=== PATIENT | female | born 1950 | race Caucasian/White ===

== ENCOUNTER → 2019-08-03 | Outpatient (CLI) | payer OTHER ==
--- NOTE | 2019-08-03 11:09 | US ---
EXAMINATION TYPE: US pelvis complete transvag DATE OF EXAM: 08/03/2019 COMPARISON: NONE CLINICAL HISTORY: R1031 RLQ PAIN. RLQ pain, tubal ligation TECHNIQUE: Transvaginal (TV) and Transabdominal (TA) . Transabdominal sonographic images of the pel vis were acquired. Transvaginal sonographic images were medically necessary to better assess the fol lowing anatomy: ovaries Date of LMP: unknown EXAM MEASUREMENTS: Uterus: 8.9 x 2.9 x 4.1 cm Endometrial Stripe: 1.2 cm Right Ovary: unable to visualize Left Ovary: unable to visualize 1. Uterus: Anteverted heterogeneous 2. Endometrium: thickened with cystic area = 0.3cm 3. Right Ovary: Obscured by overlying bowel gas 4. Left Ovary: Obscured by overlying bowel gas 5. Bilateral Adnexa: appears wnl 6. Posterior cul-de-sac: wnl IMPRESSION: Abnormal endometrial thickness of 1.2 cm and a postmenopausal female. Direct visualizatio n with sampling is recommended. Ovaries are nonvisualized.
--- NOTE | 2019-08-03 11:38 | US ---
EXAMINATION TYPE: US abdomen complete DATE OF EXAM: 08/03/2019 COMPARISON: NONE CLINICAL HISTORY: R1031 RLQ PAIN. RLQ pain EXAM MEASUREMENTS: Liver Length: 15.3 cm Gallbladder Wall: 0.2 cm CBD: 0.5 cm Spleen: 11.5 cm Right Kidney: 10.8 x 4.5 x 4.8 cm Left Kidney: 11.3 x 5.6 x 4.7 cm Pancreas: Obscured by bowel gas Liver: complex cystic area left lobe 2.9 x 2.9 x 3.4cm Gallbladder: polyps noted, subcentimeter. There appears to be two present. Evidence for sonographic Elizabeth's sign: no CBD: appears wnl Spleen: wnl Right Kidney: no evidence of hydronephrosis Left Kidney: cystic area lower pole = 3.6 x 3.1 x 3.0cm Upper IVC: wnl Abd Aorta: calcifications noted The liver is homogenous other than the above-mentioned cystic lesion. The intrahepatic portion of th e IVC and proximal abdominal aorta are within normal limits. There is no evidence of cholelithiasis. Common bile duct is unremarkable. The pancreas is obscured. The spleen is unremarkable. Kidneys are symmetric and free of hydronephrosis. No suspicious renal lesions are seen. IMPRESSION: 1. Multiple subcentimeter gallbladder polyps, annual surveillance is recommended for subcentimeter po lyps with yearly ultrasound. 2. Benign-appearing cyst of the left lower pole the kidney measuring 3.6 cm and complex benign-appear ing cyst of the liver measuring 3.4 cm.
== END | disposition home or self-care (01) ==
LOC: RADUSWWP 08:30
PROVIDERS: ATTEND Family Medicine
DX: K82.4 Cholesterolosis of gallbladder (principal); N28.1 Cyst of kidney, acquired; K76.89 Other specified diseases of liver; R93.89 Abnormal findings on diagnostic imaging of other specified body structures; Z78.0 Asymptomatic menopausal state
CPT/HCPCS: 76700; 76830; 76856

== ENCOUNTER → 2021-08-19 | Outpatient (CLI) | payer MEDICARE ==
--- NOTE | 2021-08-25 11:22 | MM ---
Reason for exam: screening (asymptomatic). Last mammogram was performed 4 years ago. History: Patient is postmenopausal. Family history of breast cancer in paternal grandmother. Took hormonal contraceptives for 6 months beginning at age 20. Physical Findings: A clinical breast exam by your physician is recommended on an annual basis and results should be correlated with mammographic findings. MG 3D Screening Mammo W/Cad Bilateral CC and MLO view(s) were taken. Prior study comparison: September 02, 2017, bilateral MG 3d screening mammo w/cad. July 29, 2016, bilateral MG 3d screening mammo w/cad. The breast tissue is heterogeneously dense. This may lower the sensitivity of mammography. New grouped course calcifications. Further magnification views recommended. ASSESSMENT: Incomplete: need additional imaging evaluation, BI-RAD 0 RECOMMENDATION: Special view mammogram of both breasts. (magnification) [facility] will attempt to contact patient to return for supplemental views.
== END | disposition home or self-care (01) ==
LOC: RADMAMWWP 12:45
PROVIDERS: ATTEND Family Medicine
DX: Z12.31 Encounter for screening mammogram for malignant neoplasm of breast (principal); Z80.3 Family history of malignant neoplasm of breast; Z78.0 Asymptomatic menopausal state
CPT/HCPCS: 77063; 77067

== ENCOUNTER → 2021-08-26 | Outpatient (CLI) | payer MEDICARE ==
--- NOTE | 2021-08-27 07:51 | MM ---
Reason for exam: additional evaluation requested from abnormal screening. Last mammogram was performed less than 1 month ago. History: Patient is postmenopausal. Family history of breast cancer in paternal grandmother. Took hormonal contraceptives for 6 months beginning at age 20. Physical Findings: Nurse did not find any significant physical abnormalities on exam. MG 3D Work Up W/Cad [facility] Bilateral spot compression CC, spot compression LM, and LM view(s) were taken. Prior study comparison: August 19, 2021, bilateral MG 3d screening mammo w/cad. September 02, 2017, bilateral MG 3d screening mammo w/cad. The breast tissue is heterogeneously dense. This may lower the sensitivity of mammography. Finding: There are new increasing heterogeneous, grouped/clustered calcifications in the upper outer quadrant, middle position of both breasts. New finding since August 19, 2021. These results were verbally communicated with the patient and result sheet given to the patient on 08/26/21. ASSESSMENT: Suspicious, BI-RAD 4 RECOMMENDATION: Stereotactic core biopsy of both breasts. Called Dr. Snyder's office with mammographic findings and has scheduled an appointment for the patient for 09/24/21 at 11:[address] Levin. Biopsy scheduled for 09/18/21 at 8:00. PRELIMINARY REPORT CALLED AND FAXED TO DR. LVEIN ON 08/26/21.
== END | disposition home or self-care (01) ==
LOC: RADMAMWWP 13:12
PROVIDERS: ATTEND Family Medicine
DX: R92.8 Other abnormal and inconclusive findings on diagnostic imaging of breast (principal)
CPT/HCPCS: 77066; G0279; 77062

== ENCOUNTER → 2021-09-18 | Day surgery (SDC) | payer MEDICARE ==
[2021-09-18 07:25] VITALS: PULSE 55; TEMP 98.1
[2021-09-18 10:31] VITALS: BP 136/84; RESP 17
--- NOTE | 2021-09-18 19:22 | MM ---
EXAMINATION TYPE: MG stereo VAD BX RT, MG stereo VAD BX LT DATE OF EXAM: 09/18/2021 COMPARISON: 08/19/2021 and 08/26/2021 CLINICAL HISTORY: 71-year-old female referred for stereotactic core needle biopsy of bilateral breast calcifications. R 92.8. TECHNIQUE: Stereotactic guided core biopsy of the bilateral breast. FINDINGS: The procedure of stereotactic guided core biopsy was explained to the patient. Benefits, alternatives, and risks were discussed. An informed consent was then obtained. RIGHT: UOQ: The shortness pathway for biopsy was chosen. Shortness pathway was a lateral approach. I performed the localization followed by the remainder of the procedure. A vacuum assisted biopsy gun was used to obtain 6 core samples. Targeted calcifications are identified in specimen mammogram. Post biopsy mammogram shows 1.0 to 1.5 cm of lateral clip migration. LEFT: UOQ: The shortness pathway for biopsy was chosen. Shortness pathway was a superior approach. I performed the localization followed by the remainder of the procedure. A vacuum assisted biopsy gun was used to obtain 8 core samples. Targeted calcifications are identified in the specimen mammogram. Post biopsy mammogram shows the clip to appear in satisfactory position relative to the targeted area of concern on the preprocedure images. Some residual microcalcifications remaining. The patient tolerated the procedure well without any immediate complication. The patient was kept in the radiology department for short stay after the procedure and then discharged home in stable condition. IMPRESSION: SUCCESSFUL, UNCOMPLICATED STEREOTACTIC GUIDED CORE BIOPSY OF BILATERAL MICROCALCIFICATIONS IN THE UPPER OUTER QUADRANTS. Note 1.0 to 1.5 cm of lateral clip migration on the right. FULL PATHOLOGY RESULTS TO FOLLOW. Pathology Results: Benign A. RIGHT BREAST, STEREOTACTIC CORE BIOPSY: Fibroadenomatoid hyperplasia with calcifications and background fibrocystic changes. B. LEFT BREAST, STEREOTACTIC CORE BIOPSY: Fibroadenomatoid hyperplasia with calcifications and background fibrocystic changes. Recommendation Follow up mammogram of both breasts in 6 months. KRISSY
== END ==
LOC: RADMAMWWP 07:04
PROVIDERS: ATTEND Student in an Organized Health Care Education/Training Program
DX: R92.8 Other abnormal and inconclusive findings on diagnostic imaging of breast (principal); R92.1 Mammographic calcification found on diagnostic imaging of breast; N62 Hypertrophy of breast; Z88.8 Allergy status to other drugs, medicaments and biological substances
CPT/HCPCS: 88305; 19081; 19082; A4648; J2001

== ENCOUNTER → 2022-01-30 | Outpatient (CLI) | payer MEDICARE ==
--- NOTE | 2022-01-30 11:28 | US ---
EXAMINATION TYPE: US thyroid st tissue head/neck DATE OF EXAM: 01/30/2022 COMPARISON: NONE CLINICAL HISTORY: HYPERCALCEMIA E83.52. GLAND SIZE: Right Lobe: 4.1 x 1.4 x 1.8 cm Overall Parenchyma: homogenous Left Lobe: 4.2 x 1.4 x 1.3 cm Overall Parenchyma: homogeneous Isthmus Thickness: 0.3 cm NODULES RIGHT: # of nodules measured on right: 0 LEFT: # of nodules measured on left: 1 1. 1.6 X 1.2 x 1.4 cm, lower mid, solid or almost completely solid, hypoechoic nodule, which is wid er than tall, with ill-defined margins, with echogenic foci. Prior size: no previous ISTHMUS: # of nodules measured in the isthmus: 0 Bilateral neck scanned, no evidence of lymphadenopathy. IMPRESSION: Solid nodule left thyroid lobe. Consider tissue diagnosis. 2017 ACR TI-RADS LEVEL: *Highest TI-RADS level nodule reported
== END | disposition home or self-care (01) ==
LOC: RADUSWWP 10:35
PROVIDERS: ATTEND Family Medicine
DX: E04.1 Nontoxic single thyroid nodule (principal); E83.52 Hypercalcemia
CPT/HCPCS: 76536

== ENCOUNTER 2022-03-18 08:26 | Day surgery (SDC) | payer MEDICARE ==
[2022-03-18 09:05] VITALS: RESP 18
[2022-03-18] MEDS ORDERED: ALPRAZolam 0.25 MG TAB PO STA (09:10)
[2022-03-18 09:22] LABS: Glucose,Whole Blood 121 mg/dL (70-110)
[2022-03-18 10:24] VITALS: PULSE 53
[2022-03-18 10:28] VITALS: BP 149/78
--- NOTE | 2022-03-18 10:54 | US ---
ULTRASOUND GUIDED FNA THYROID BIOPSY: CLINICAL HISTORY: Left thyroid nodule FINDINGS: The procedure was explained to the patient. The risks, complications, benefits and alternatives were discussed and any questions were answered. Informed consent was obtained. Patient was placed supin e on the ultrasound table and prepped and draped in the usual sterile fashion. Utilizing a 25 gauge needle, five passes were made into the requested left thyroid nodule. Patient was stable throughout the procedure. Pathology is pending. All elements of maximal barrier technique were utilized. IMPRESSION: 1. Successful ultrasound guided FNA thyroid biopsy.
== END 2022-03-18 11:00 | disposition home or self-care (01) ==
LOC: RADPROMAIN 08:26
PROVIDERS: ATTEND Family Medicine
DX: D34 Benign neoplasm of thyroid gland (principal); Z88.8 Allergy status to other drugs, medicaments and biological substances; Z79.82 Long term (current) use of aspirin; Z79.899 Other long term (current) drug therapy; Z79.1 Long term (current) use of non-steroidal anti-inflammatories (NSAID)
CPT/HCPCS: 10005; 88173; 88305

== ENCOUNTER → 2022-03-20 | Outpatient (CLI) | payer MEDICARE ==
--- NOTE | 2022-03-20 13:21 | MM ---
Reason for Exam: Follow-up at short interval from prior study. Last screening mammogram was performed 7 month(s) ago. Patient History: Menarche at age 13. First Full-Term at age 21. Postmenopausal. Hormonal Contraceptives for 6 months starting at age 20. 09/18/2021, Benign Core Biopsy on the left side. 09/18/2021, Benign Core Biopsy on the right side. Paternal grandmother had breast cancer. Risk Values: Tamara 5 year model risk: 2.1%. NCI Lifetime model risk: 6.0%. Tissue Density: The breast tissue is heterogeneously dense. This may lower the sensitivity of mammography. Findings: Analyzed By CAD. Stable appearing bilateral benign-appearing calcifications some of which have been sampled. No evidence for mass or distortion. Overall Assessment: Benign, BI-RAD 2 Management: Screening Mammogram of both breasts in 6 months. A clinical breast exam by your physician is recommended on an annual basis and results should be correlated with mammographic findings. This exam should not preclude additional follow-up of suspicious palpable abnormalities. Results were given to the patient verbally at the time of exam. Electronically signed and approved by: Isidro Driver M.D. Radiologis
== END | disposition home or self-care (01) ==
LOC: RADMAMWWP 12:48
PROVIDERS: ATTEND Family Medicine
DX: R92.8 Other abnormal and inconclusive findings on diagnostic imaging of breast (principal); Z78.0 Asymptomatic menopausal state; Z80.3 Family history of malignant neoplasm of breast
CPT/HCPCS: 77066; G0279; 77062

== ENCOUNTER → 2023-02-04 | Outpatient (CLI) | payer MEDICARE ==
--- NOTE | 2023-02-04 15:43 | US ---
EXAMINATION TYPE: US thyroid st tissue head/neck DATE OF EXAM: 02/04/2023 COMPARISON: 01/30/2022 CLINICAL INDICATION: Female, 73 years old with history of E041, E8352 HYPERCALCEMIA, NONTOXIC SINGLE THYROID NODULE; thyroid nodule GLAND SIZE: Right Lobe: 4.1x1.3x1.5 cm Overall Parenchyma: homogenous Left Lobe: 3.8x1.4x1.1 cm Overall Parenchyma: homogeneous Isthmus Thickness: 0.3 cm NODULES RIGHT: # of nodules measured on right: 1. A 1.0 x 0.7 x 0.5 cm oval hypoechoic TR4 solid nodule at the anterior midpole. Not well seen previously. Reassess at follow-up. LEFT: # of nodules measured on left: 1 1. 1.9 X 1.4 x 1.5 cm, lower mid, solid or almost completely solid, hypoechoic TR 4 nodule, which i s taller than wide, with smooth margins, without echogenic foci. Prior size: 1.6 x 1.2 x 1.4 cm ISTHMUS: # of nodules measured in the isthmus: 0 Bilateral neck scanned, no evidence of lymphadenopathy. IMPRESSION: 1. A 1.0 cm TR4 nodule in the right lobe previously not well seen. Reassessed at follow-up. 2. The TR4 nodule in the left lobe is slightly larger at 1.9 x 1.5 cm (versus 1.6 x 1.4 cm, previousl y).
--- NOTE | 2023-02-05 09:07 | MM ---
Reason for Exam: Screening (asymptomatic). Last screening mammogram was performed 11 month(s) ago. Patient History: Menarche at age 13. First Full-Term at age 21. Postmenopausal. Hormonal Contraceptives for 6 months starting at age 20. 09/18/2021, Benign Core Biopsy on the left side. 09/18/2021, Benign Core Biopsy on the right side. Paternal grandmother had breast cancer. Risk Values: Tamara 5 year model risk: 2.1%. NCI Lifetime model risk: 5.7%. Prior Study Comparison: 08/19/2021 Bilateral Screening Mammogram, [facility]. 08/26/2021 Bilateral Diagnostic Mammogram, [facility]. 03/20/2022 Bilateral MG 3D diag mammo w/cad [facility], [facility]. Tissue Density: The breast tissue is heterogeneously dense. This may lower the sensitivity of mammography. Findings: Analyzed By CAD. There is no suspicious group of microcalcifications or new suspicious mass in either breast. Previous mammotome biopsy of the left breast. Benign-appearing stable calcifications within both breasts. Overall Assessment: Benign, BI-RAD 2 Management: Screening Mammogram of both breasts in 1 year. A clinical breast exam by your physician is recommended on an annual basis and results should be correlated with mammographic findings. Electronically signed and approved by: Dontrell Govea D.O.
== END | disposition home or self-care (01) ==
LOC: RADUSWWP 09:59
PROVIDERS: ATTEND Family Medicine
DX: Z12.31 Encounter for screening mammogram for malignant neoplasm of breast (principal); E04.1 Nontoxic single thyroid nodule; Z78.0 Asymptomatic menopausal state; Z80.3 Family history of malignant neoplasm of breast
CPT/HCPCS: 76536; 77063; 77067

== ENCOUNTER 2023-03-25 08:23 | Day surgery (SDC) | payer MEDICARE ==
[2023-03-25] MEDS ORDERED: ALPRAZolam 0.25 MG TAB PO STA (09:23)
--- NOTE | 2023-03-25 10:36 | US ---
EXAMINATION TYPE: US FNA first lesion DATE OF EXAM: 03/25/2023 10:22 AM CLINICAL INDICATION:Female, 73 years old with history of E04.2 multinodular goiter; , thyroid nodule. COMPARISON: 02/04/2023 ATTENDING: Dr. Rey Andersen PROCEDURE: Informed consent was obtained. The risks and benefits of the procedure were discussed with the patien t. The site was marked. Timeout procedure was performed Ultrasound imaging of the thyroid demonstrates left thyroid nodule The patient was prepped, draped in the usual sterile fashion, and locally anesthetized with 1% lidoca ine. Five fine needle aspiration were then performed with a 25 gauge needle. Samples were sent to [facility] pathology department for further analysis. Patient tolerated the procedure without incident and wa s sent home in stable condition. IMPRESSION: Successful ultrasound guided fine needle aspiration of left thyroid nodule.
[2023-03-25 11:12] VITALS: RESP 16; TEMP 97.9
[2023-03-25 11:14] VITALS: BP 139/78; PULSE 48
== END 2023-03-25 11:10 | disposition home or self-care (01) ==
LOC: RADPROMAIN 08:23
PROVIDERS: ATTEND Family Medicine
DX: E04.1 Nontoxic single thyroid nodule (principal)
CPT/HCPCS: 10005; 88173; 88305

== ENCOUNTER → 2024-03-15 | Outpatient (CLI) | payer MEDICARE ==
--- NOTE | 2024-03-15 22:06 | US ---
EXAMINATION TYPE: US thyroid st tissue head/neck DATE OF EXAM: 03/15/2024 COMPARISON: Thyroid ultrasound 01/30/2022, 02/04/2023, ultrasound FNA 03/16/2022, 03/25/2023 CLINICAL INDICATION: Female, 74 years old with history of E04.1 THYROID; follow up thyroid nodules. GLAND SIZE: Right Lobe: 3.9 x 1.8 x 1.0 cm Overall Parenchyma: homogeneous Left Lobe: 3.9 x 1.6 x 1.1 cm Overall Parenchyma: homogeneous Isthmus Thickness: 0.3 cm NODULES RIGHT: # of nodules measured on right: 0 1. Unable to visualize prior thyroid nodule, multiple images taken LEFT: # of nodules measured on left: 1 1. 1.5 X 1.4 x 1.4 cm, lower mid, solid or almost completely solid, hypoechoic nodule, which is wid er than tall, with smooth margins, with echogenic foci. TR 4. Prior size: 1.9 x 1.4 x 1.5 cm ISTHMUS: # of nodules measured in the isthmus: 0 Bilateral neck scanned, no evidence of lymphadenopathy. IMPRESSION: 1. Stable to marginally decreased size left thyroid lobe 1.5 cm TR 4 nodule. Previous FNA 03/25/2023. 2. Previously seen right thyroid lobe 1 cm nodule is not visualized on today's exam.
== END | disposition home or self-care (01) ==
LOC: RADMAMWWP 12:47
PROVIDERS: ATTEND Family Medicine
DX: Z12.31 Encounter for screening mammogram for malignant neoplasm of breast (principal); E04.1 Nontoxic single thyroid nodule
CPT/HCPCS: 76536; 77063; 77067

== ENCOUNTER 2024-05-02 08:07 | Day surgery (SDC) | payer MEDICARE ==
[2024-05-02] MEDS ORDERED: LACTATED RINGERS 1,000 ML BAG ONE (09:30)
[2024-05-02] MEDS ORDERED: PROPOFOL 10 MG/ML 20 ML VIAL IV ONE (10:03)
[2024-05-02] MEDS ORDERED: LIDOCAINE 1% INJ 10MG/ML (20 ML MDV) ONE (10:03)
--- NOTE | 2024-05-24 13:01 | P.PCN ---
Date of Procedure: 05/02/24 Procedure(s) Performed: This is an addendum to the procedure was performed on 05/02/2024. Procedure performed colonoscopy with snare polypectomy Procedure: The colonoscopy was advanced all the way into the cecum and careful examination was performed as the scope was gradually being withdrawn
== END 2024-05-02 11:32 | disposition home or self-care (01) ==
LOC: ORWHC2ENDO 08:07
PROVIDERS: ATTEND Internal Medicine Gastroenterology
DX: Z12.11 Encounter for screening for malignant neoplasm of colon (principal); K63.5 Polyp of colon; K57.90 Diverticulosis of intestine, part unspecified, without perforation or abscess without bleeding; I10 Essential (primary) hypertension; E78.5 Hyperlipidemia, unspecified; Z79.899 Other long term (current) drug therapy; E11.69 Type 2 diabetes mellitus with other specified complication; Z79.84 Long term (current) use of oral hypoglycemic drugs; Z79.82 Long term (current) use of aspirin; Z88.8 Allergy status to other drugs, medicaments and biological substances; Z98.890 Other specified postprocedural states; Z96.641 Presence of right artificial hip joint
CPT/HCPCS: 45385; 88305

== ENCOUNTER → 2025-02-08 | Outpatient (CLI) | payer MEDICARE ==
--- NOTE | 2025-02-08 10:55 | US ---
EXAMINATION TYPE: US thyroid st tissue head/neck DATE OF EXAM: 02/08/2025 COMPARISON: US 03/15/2024 CLINICAL INDICATION: Female, 75 years old with history of E04.1 NONTOXIC SINGLE THYROID NODULE; Thyro id nodule F/U TECHNIQUE: Grayscale and color Doppler imaging of the thyroid gland. FINDINGS: GLAND SIZE: Right Lobe: 3.8 x 1.5 x 1.6 cm Overall Parenchyma: homogeneous Left Lobe: 3.6 x 1.3 x 1.4 cm Overall Parenchyma: homogeneous Isthmus Thickness: 0.2 cm NODULES RIGHT: # of nodules measured on right: 0 LEFT: # of nodules measured on left: 1 1. 1.5 X 1.3 x 1.6 cm, lower medial, Prior size: 1.5 x 1.4 x 1.4 cm TIRADS Score: 3 TIRADS Category 3: Composition: Solid or almost completely solid (2 points). Echogenicity: Hyperechoic or isoechoic (1 point). Shape: Wider than tall (0 points). Margin: Smooth (0 points). Echogenic foci: None or large comet-tail artifacts (0 points) Recommendation: If >2.5cm: FNA; If >1.5cm: Follow up at 1,3,5 years ISTHMUS: # of nodules measured in the isthmus: 0 2017 ACR TI-RADS LEVEL: Bilateral neck scanned, no evidence of lymphadenopathy. IMPRESSION: Left BI-RADS 3 nodule meets criteria for follow-up. Highest TI-RADS level nodule reported: 2017 ACR TI-RADS LEVEL: TI-RADS 3 - Mildly Suspicious: Follow if > 1.5 cm, FNA if > 2.5 cm TI-RADS assessment score and recommendation for follow-up based on appropriate scoring and treatment protocols. TR3: If nodule size is ? 2.5 cm, FNA is recommended. If nodule size is ? 1.5 cm, follow-up imaging at 1, 3, and 5 years is recommended. TR4: If nodule size is ? 1.5 cm, FNA is recommended. If nodule size is ? 1.0 cm, follow-up imaging at 1, 2, 3, and 5 years is recommended. TR5: If nodule size is ? 1.0 cm, FNA is recommended. If nodule size is ? 0.5 cm, annual follow-up for up to 5 years is recommended. TIRADS Classification Table TR1 0 Benign No FNA TR2 2 Not suspicious No FNA TR3 3 Mildly suspicious If ?2.5 cm: FNA If ?1.5 cm:Follow up at 1,3 ,5 years TR4 4-6 Moderately suspicious If ?1.5cm: FNA If ?1 cm:Follow up at 1,3 ,5 years TR5 7 or more Highly suspicious If ?1 cm: FNA If ?0.5 cm follow annually for 5 years TR 1 thyroid nodules have a 0.3 % risk of malignancy. TR 2 thyroid nodules have a 1.5 % risk of malignancy. TR 3 thyroid nodules have a 4.8 % risk of malignancy. TR 4 thyroid nodules have a 9.1 % risk of malignancy. TR 5 thyroid nodules have a 35 % risk of malignancy. [email or web address] [facility], , 02/08/2025 10:52 AM
== END | disposition home or self-care (01) ==
LOC: RADUSWWP 09:45
PROVIDERS: ATTEND Family Medicine
DX: E04.1 Nontoxic single thyroid nodule (principal)
CPT/HCPCS: 76536

== ENCOUNTER → 2025-03-21 | Outpatient (CLI) | payer MEDICARE ==
--- NOTE | 2025-03-21 14:36 | MM ---
Reason for Exam: Screening (asymptomatic). Last screening mammogram was performed 12 month(s) ago. Patient History: Menarche at age 13. First Full-Term at age 21. Postmenopausal. Patient has history of breast feeding. Hormonal Contraceptives for 6 months starting at age 20. 09/18/2021, Benign Core Biopsy on the left side. 09/18/2021, Benign Core Biopsy on the right side. Paternal grandmother had breast cancer. Risk Values: Tamara 5 year model risk: 2.1%. NCI Lifetime model risk: 5.1%. Prior Study Comparison: 03/20/2022 Bilateral MG 3D diag mammo w/cad [facility], [facility]. 02/04/2023 Bilateral MG 3D screening mammo w/cad, [facility]. 03/15/2024 Bilateral MG 3D screening mammo w/cad, [facility]. Tissue Density: The breasts are heterogeneously dense, which may obscure small masses. Findings: Analyzed By CAD. Right breast: There is no suspicious group of microcalcifications or new suspicious mass. Benign-appearing calcifications right breast. Left breast: There is no suspicious group of microcalcifications or new suspicious mass. Benign-appearing calcifications left breast. Overall Assessment: Benign, BI-RAD 2 Management: Screening Mammogram of both breasts in [address] [facility] will attempt to contact patient to return for supplemental views and ultrasound if indicated. Patient should continue monthly self-breast exams. A clinical breast exam by your physician is recommended on an annual basis. This exam should not preclude additional follow-up of suspicious palpable abnormalities. Note on Tamara scores and lifetime risk: 1. A Tamara score greater than 3% is considered moderate risk. If this is the case, consider specialist referral to assess eligibility for a risk reducing agent. 2. If overall lifetime risk for the development of breast cancer is 20% or higher, the patient may qualify for future screening with alternating mammogram and breast MRI. [facility], , 03/21/2025 2:33 PM. Electronically signed and approved by: Rey Andersen DO
== END | disposition home or self-care (01) ==
LOC: RADMAMWWP 13:49
PROVIDERS: ATTEND Family Medicine
DX: Z12.31 Encounter for screening mammogram for malignant neoplasm of breast (principal); R92.333 Mammographic heterogeneous density, bilateral breasts; Z78.0 Asymptomatic menopausal state; Z80.3 Family history of malignant neoplasm of breast
CPT/HCPCS: 77063; 77067